=== PATIENT | female | born 1975 | race Caucasian/White ===

== ENCOUNTER 2016-08-26 19:02 | Emergency (ER) | payer OTHER ==
[~2016-08-26] VITALS: Ht 162.6 cm; Wt 65.9 kg
[~2016-08-26 19:02] MED LIST: AUGMENTIN875 MG PO; CHERATUSSIN AC473 ML PO; FLONASE16 G1 BOTH NARES; LEXAPRO10 MG PO; MOTRIN600 MG PO; NAPROSYN500 MG PO; NORCO 5/3251 TABLET PO; PERCOCET 5/31 TABLET PO; PREDNISONE20 MG PO; PROVENTIL HFA6.7 GM IH; TESSALON PERLE100 MG PO; TESSALON200 MG PO; ZITHROMAX Z-PA250 MG PO; ZOFRAN4 MG PO
[2016-08-26] MEDS ORDERED: NORCO 7.5/321 TABLET PO (23:06)
[2016-08-26] MEDS ORDERED: MOTRIN800 MG PO (23:06)
[2016-08-26 23:17] VITALS: BP 132/76
== END 2016-08-26 23:18 | disposition home or self-care (01) ==
LOC: EME 19:02 → RME 19:02 → EME 19:02 → RME 23:18
DX: S06.0X9A Concussion with loss of consciousness of unspecified duration, initial encounter (principal); S20.20XA Contusion of thorax, unspecified, initial encounter; Y04.8XXA Assault by other bodily force, initial encounter; Y92.009 Unspecified place in unspecified non-institutional (private) residence as the place of occurrence of the external cause; Y07.03 Male partner, perpetrator of maltreatment and neglect
CPT/HCPCS: 70450; 70486; 71020; 99281; 99285

== ENCOUNTER 2016-10-23 17:42 | Emergency (ER) | payer OTHER ==
[~2016-10-23] VITALS: Ht 162.6 cm; Wt 68.9 kg
[~2016-10-23 17:42] MED LIST changes: +MOTRIN800 MG PO; +NORCO 7.5/321 TABLET PO
[2016-10-23 18:12] LABS: HEMATOCRIT 38.9 % (36.0-46.0); MCH 30.5 PG (29.0-34.0); MCHC 33.2 G/DL (30.0-36.0); PLATELET COUNT 256 K/uL (156-360); RBC DIS.WIDTH-CV 11.5 % (11.8-14.6); RBC DIS.WIDTH-SD 39.1 % (39-53); RED BLOOD COUNT 4.23 M/uL (3.80-5.20); WHITE BLOOD COUNT 6.9 K/uL (4.1-10.2)
[2016-10-23 18:27] LABS: CHLORIDE 105 mEq/L (99-109); POTASSIUM 3.8 mEq/L (3.7-5.4); SODIUM 140 mEq/L (136-147)
[2016-10-23 18:29] LABS: GLUCOSE 87 mg/dL (70-99)
[2016-10-23 18:31] LABS: ANION GAP 9 MEQ/L (2-14); TOTAL BILIRUBIN 0.4 mg/dL (0.0-1.0)
[2016-10-23 18:33] LABS: ALKALINE PHOSPHATASE 59 IU/L (3-129); GFR ESTIMATE (CALCULATED) > 59 mL/min/
[2016-10-23 18:34] LABS: UREA NITROGEN (BUN) 12 mg/dL (9-23)
[2016-10-23 18:44] LABS: QUANTITATIVE HCG < 4.0 MIU/ML
[2016-10-23 19:14] LABS: ADD MIUA? YES; BILIRUBIN NEGATIVE; BLOOD MODERATE; COLOR COLORLESS ((YELLOW)); GLUCOSE (STRIP) NEGATIVE; KETONES NEGATIVE; LEUKOCYTES SMALL; NITRITE NEGATIVE; PROTEIN (STRIP) NEGATIVE; SPECIFIC GRAVITY 1.006 (1.000-1.030); UROBILINOGEN 0.2 MG/DL (0.2-1.0)
[2016-10-23] MEDS ORDERED: CITRATE OF MAG296 ML PO (19:24)
[2016-10-23 19:29] VITALS: BP 125/80
[2016-10-23 19:30] LABS: BACTERIA NONE SEEN /HPF; EPITHELIAL CELLS RARE /HPF; MUCUS TRACE /LPF; RED BLOOD CELLS 0-5 /HPF (0-5); UCUL ADDED? NO; WHITE BLOOD CELLS 0-5 /HPF (0-5)
== END 2016-10-23 19:48 | disposition home or self-care (01) ==
LOC: EME 17:42
DX: R10.30 Lower abdominal pain, unspecified (principal); K59.00 Constipation, unspecified
CPT/HCPCS: 74176; 80053; 81003; 84702; 85027; 99281; 99284

== ENCOUNTER 2017-01-31 19:45 | Emergency (ER) | payer OTHER ==
[~2017-01-31] VITALS: Ht 162.6 cm; Wt 68.6 kg
[~2017-01-31 19:45] MED LIST changes: +CITRATE OF MAG296 ML PO
[2017-01-31 20:45] LABS: HEMATOCRIT 36.3 % (36.0-46.0); MCH 30.4 PG (29.0-34.0); MCHC 33.1 G/DL (30.0-36.0); MCV 91.9 FL (83-99); PLATELET COUNT 224 K/uL (156-360); RBC DIS.WIDTH-CV 11.9 % (11.8-14.6); RBC DIS.WIDTH-SD 40.1 % (39-53); RED BLOOD COUNT 3.95 M/uL (3.80-5.20); WHITE BLOOD COUNT 6.2 K/uL (4.1-10.2)
[2017-01-31 20:53] LABS: CHLORIDE 107 mEq/L (99-109)
[2017-01-31 20:54] LABS: POTASSIUM 3.7 mEq/L (3.7-5.4); SODIUM 140 mEq/L (136-147)
[2017-01-31 20:55] LABS: GLUCOSE 68 mg/dL (70-99)
[2017-01-31 20:57] LABS: ANION GAP 7 MEQ/L (2-14); D-DIMER ELISA 0.35 mg/L FEU (< 0.57)
[2017-01-31 20:59] LABS: GFR ESTIMATE (CALCULATED) > 59 mL/min/
[2017-01-31 21:00] LABS: UREA NITROGEN (BUN) 16 mg/dL (9-23)
[2017-01-31 21:06] LABS: TROP-I INTERPRETATION NEGATIVE; TROPONIN-I < 0.01 ng/mL (0.0-0.30)
[2017-01-31 21:10] LABS: QUANTITATIVE HCG < 4.0 MIU/ML
[2017-01-31] MEDS ORDERED: ULTRAM50 MG PO (21:14)
[2017-01-31 21:27] VITALS: BP 136/84
== END 2017-01-31 21:40 | disposition home or self-care (01) ==
LOC: EME 19:45
PROVIDERS: Nurse Practitioner Family
DX: R09.1 Pleurisy (principal)
CPT/HCPCS: 71020; 80048; 84484; 84702; 85027; 85379; 93005; 99281; 99284

== ENCOUNTER 2017-02-08 21:09 | Emergency (ER) | payer OTHER ==
[~2017-02-08] VITALS: Ht 162.6 cm; Wt 70.0 kg
[~2017-02-08 21:09] MED LIST changes: +ULTRAM50 MG PO
[2017-02-08 21:13] VITALS: BP 118/80
[2017-02-08 23:13] LABS: ADD MIUA? YES; BILIRUBIN NEGATIVE; BLOOD MODERATE; COLOR STRAW ((YELLOW)); GLUCOSE (STRIP) NEGATIVE; KETONES NEGATIVE; LEUKOCYTES LARGE; NITRITE NEGATIVE; PROTEIN (STRIP) NEGATIVE; SPECIFIC GRAVITY 1.006 (1.000-1.030); UROBILINOGEN 0.2 MG/DL (0.2-1.0)
[2017-02-08 23:28] LABS: BACTERIA RARE /HPF; EPITHELIAL CELLS 1+ /HPF; MUCUS NONE SEEN /LPF; RED BLOOD CELLS 0-5 /HPF (0-5)
[2017-02-08] MEDS ORDERED: MOBIC7.5 MG PO (23:38)
[2017-02-08] MEDS ORDERED: KEFLEX500 MG PO (23:38)
== END 2017-02-09 00:01 | disposition home or self-care (01) ==
LOC: EME 21:09
PROVIDERS: Nurse Practitioner Family
DX: L03.115 Cellulitis of right lower limb (principal); N39.0 Urinary tract infection, site not specified; E78.5 Hyperlipidemia, unspecified; F32.9 Major depressive disorder, single episode, unspecified
CPT/HCPCS: 71020; 81003; 99281; 99284

== ENCOUNTER 2017-03-02 21:12 | Emergency (ER) | payer OTHER ==
[~2017-03-02] VITALS: Ht 162.6 cm; Wt 71.2 kg
[~2017-03-02 21:12] MED LIST changes: +KEFLEX500 MG PO; +MOBIC7.5 MG PO
[2017-03-02 22:02] LABS: HEMATOCRIT 38.7 % (36.0-46.0); MCH 30.5 PG (29.0-34.0); MCHC 33.1 G/DL (30.0-36.0); MCV 92.1 FL (83-99); MEAN PLAT.VOLUME 10.7 uM^3 (9.5-12.4); PLATELET COUNT 253 K/uL (156-360); RBC DIS.WIDTH-CV 11.9 % (11.8-14.6); RBC DIS.WIDTH-SD 39.9 % (39-53); WHITE BLOOD COUNT 8.1 K/uL (4.1-10.2)
[2017-03-02 22:16] LABS: CHLORIDE 105 mEq/L (99-109); POTASSIUM 3.8 mEq/L (3.7-5.4); SODIUM 141 mEq/L (136-147)
[2017-03-02 22:17] LABS: GLUCOSE 64 mg/dL (70-99)
[2017-03-02 22:19] LABS: ANION GAP 11 MEQ/L (2-14)
[2017-03-02 22:21] LABS: GFR ESTIMATE (CALCULATED) > 59 mL/min/
[2017-03-02 22:22] LABS: UREA NITROGEN (BUN) 11 mg/dL (9-23)
[2017-03-02 22:27] LABS: TROP-I INTERPRETATION NEGATIVE; TROPONIN-I < 0.01 ng/mL (0.0-0.30)
[2017-03-02] MEDS ORDERED: NAPROXEN500 MG PO (22:27)
[2017-03-02 23:17] VITALS: BP 151/83
== END 2017-03-02 23:19 | disposition home or self-care (01) ==
LOC: EME 21:12
DX: N64.4 Mastodynia (principal); F41.9 Anxiety disorder, unspecified
CPT/HCPCS: 71020; 80048; 84484; 85027; 93005; 99281; 99284

== ENCOUNTER 2017-04-17 08:51 | Emergency (ER) | payer OTHER ==
[~2017-04-17] VITALS: Ht 162.6 cm; Wt 70.7 kg
[~2017-04-17 08:51] MED LIST changes: +NAPROXEN500 MG PO
[2017-04-17] MEDS ORDERED: SIMVASTATIN10 MG PO (09:05)
[2017-04-17] MEDS ORDERED: CYMBALTA60 MG PO (09:05)
[2017-04-17] MEDS ORDERED: BUPROPION HCL75 MG PO (09:05)
[2017-04-17] MEDS ORDERED: REMERON30 M2 PO (09:06)
[2017-04-17 09:46] LABS: EOSINOPHIL COUNT 0.1 K/uL (0-0.3); HEMATOCRIT 36.3 % (36.0-46.0); IMMATURE GRANULOCYTE (%) 0.2 % (0.0-0.7); INSTRUMENT ABS NEUTROPHIL CT 2.3 K/uL; LYMPHOCYTE COUNT 1.4 K/uL (1.0-2.8); MCH 30.5 PG (29.0-34.0); MCHC 33.3 G/DL (30.0-36.0); MCV 91.4 FL (83-99); MEAN PLAT.VOLUME 11.3 uM^3 (9.5-12.4); MONOCYTE (%) 5.9 % (3-12); MONOCYTE COUNT 0.2 K/uL (0-0.8); NEUTROPHIL (%) 56.3 % (45-76); NEUTROPHIL COUNT 2.3 K/uL (1.8-6.4); PLATELET COUNT 203 K/uL (156-360); RBC DIS.WIDTH-CV 11.4 % (11.8-14.6); RBC DIS.WIDTH-SD 38.3 % (39-53); RED BLOOD COUNT 3.97 M/uL (3.80-5.20); WHITE BLOOD COUNT 4.1 K/uL (4.1-10.2)
[2017-04-17 09:56] LABS: CHLORIDE 109 mEq/L (99-109); POTASSIUM 4.1 mEq/L (3.7-5.4); SODIUM 140 mEq/L (136-147)
[2017-04-17 09:58] LABS: GLUCOSE 94 mg/dL (70-99)
[2017-04-17 09:59] LABS: ANION GAP 6 MEQ/L (2-14)
[2017-04-17 10:00] LABS: TOTAL BILIRUBIN 0.7 mg/dL (0.0-1.0)
[2017-04-17 10:01] LABS: ALKALINE PHOSPHATASE 59 IU/L (3-129)
[2017-04-17 10:02] LABS: GFR ESTIMATE (CALCULATED) > 59 mL/min/
[2017-04-17 10:03] LABS: UREA NITROGEN (BUN) 9 mg/dL (9-23)
[2017-04-17 10:10] LABS: QUANTITATIVE HCG < 4.0 MIU/ML
[2017-04-17 10:19] LABS: ADD MIUA? YES; BILIRUBIN NEGATIVE; BLOOD MODERATE; COLOR STRAW ((YELLOW)); GLUCOSE (STRIP) NEGATIVE; KETONES NEGATIVE; LEUKOCYTES SMALL; NITRITE NEGATIVE; PROTEIN (STRIP) NEGATIVE; UROBILINOGEN 0.2 MG/DL (0.2-1.0)
[2017-04-17 10:24] LABS: BACTERIA RARE /HPF; EPITHELIAL CELLS RARE /HPF; MUCUS TRACE /LPF; UCUL ADDED? YES
[2017-04-17] MEDS ORDERED: ANTIVERT25 MG PO (11:34)
[2017-04-17] MEDS ORDERED: BACTRIM,SEPT1 TABLET PO (11:41)
[2017-04-17 11:42] VITALS: BP 128/83
== END 2017-04-17 12:09 | disposition home or self-care (01) ==
LOC: EME 08:51
PROVIDERS: Physician Assistant
DX: H81.10 Benign paroxysmal vertigo, unspecified ear (principal); N39.0 Urinary tract infection, site not specified; H40.9 Unspecified glaucoma
CPT/HCPCS: 70450; 80053; 81003; 84702; 85025; 87077; 87086; 87186; 99281; 99285

== ENCOUNTER 2017-05-26 18:34 | Emergency (ER) | payer OTHER ==
[~2017-05-26] VITALS: Ht 162.6 cm; Wt 70.4 kg
[~2017-05-26 18:34] MED LIST changes: +ANTIVERT25 MG PO; +BACTRIM,SEPT1 TABLET PO; +BUPROPION HCL75 MG PO; +CYMBALTA60 MG PO; +REMERON30 M2 PO; +SIMVASTATIN10 MG PO
[2017-05-26] MEDS ORDERED: MOTRIN800 MG PO (20:29)
[2017-05-26] MEDS ORDERED: MUCINEX D ER T1 EACH PO (20:29)
[2017-05-26] MEDS ORDERED: TESSALON PERLE100 MG PO (20:29)
[2017-05-26 21:41] VITALS: BP 132/83
== END 2017-05-26 21:47 | disposition home or self-care (01) ==
LOC: EME 18:34
DX: J06.9 Acute upper respiratory infection, unspecified (principal); E78.5 Hyperlipidemia, unspecified; F32.9 Major depressive disorder, single episode, unspecified; F41.9 Anxiety disorder, unspecified
CPT/HCPCS: 87651 90; 99281; 99283